=== PATIENT | female | born 1965 | race Caucasian/White ===

== ENCOUNTER 2018-05-15 11:30 | Outpatient (REF) | payer OTHER, SELFPAY ==
[2018-05-15 13:27] LABS: Anion Gap 9.7 mmol/L (3-11); BUN 19 mg/dL (7-18); CO2 23.3 mmol/L (21.0-32.0); CREATININE 0.77 mg/dL (0.55-1.02); Calcium 8.7 mg/dL (8.5-10.1); Chloride 106 mmol/L (98-107); Cholesterol 169 mg/dL (50-200); Glucose 104 mg/dL (70-100); HDL Cholesterol 57 mg/dL (40-60); LDL CHOLESTEROL 87 mg/dL (<100); Sodium 139 mmol/L (136-145); TSH (W/Ref FT4) 0.71 uIU/mL (0.358-3.74); Triglyceride 133 mg/dL (30-150)
== END 2018-05-15 11:50 ==
LOC: NCHCN 11:30
PROVIDERS: PCP Family Medicine; Visit Provider Nurse Practitioner Family
DX: Z00.00 Encounter for general adult medical examination without abnormal findings (principal); E05.90 Thyrotoxicosis, unspecified without thyrotoxic crisis or storm
CPT/HCPCS: 80048; 80061; 83721; 84443

== ENCOUNTER 2018-05-18 14:56 | Outpatient (REF) | payer OTHER, SELFPAY ==
--- NOTE | 2018-05-18 13:15 | PAPFT_PTH ---
PATIENT: JOSE J CALZADA I LOC: [facility] U#:[id number] AGE/SX: 52/F ROOM: RE05/18/[address]: Yari Henriquez : 1965 BED: DIS: 05/18/2018 SPEC #: [id number] RECD: 05/18/18 18:08 STATUS: LOIDA WATKINS #: [id number] CHANTELL: 05/18/18 13:[address]: Yari Henriquez DEPT: [facility] Cytology RECD BY: Ester Birmingham ENTERED: 05/18/18 18:09 SP TYPE: PAPFT OTHR DR: Markos Hewitt Tissues: 1 - CX/ENDOCX FOR PAP SMEARS Procedures: PAP THIN PREP/[facility] Screening HPV DNA PROBE Comments: [id number]
== END 2018-05-18 15:16 ==
LOC: NCHCN 14:56
PROVIDERS: PCP Family Medicine; Visit Provider Nurse Practitioner Family
DX: Z00.00 Encounter for general adult medical examination without abnormal findings (principal); Z12.4 Encounter for screening for malignant neoplasm of cervix; Z11.51 Encounter for screening for human papillomavirus (HPV)
CPT/HCPCS: 88142; 87624

== ENCOUNTER 2018-11-26 11:32 | Emergency (ER) | payer OTHER, SELFPAY ==
[2018-11-26 11:36] VITALS: BP 149/88; PULSE 94; RESP 16; TEMP 37; O2SAT 96
--- NOTE | 2018-11-26 11:53 | DI.RAD_ITS ---
SYMPTOMS/DIAGNOSIS: PAIN, TENDERNESS TO PALPATION, LATERAL SWELLING S/P INJURY RIGHT ANKLE: Three views. No acute fracture or dislocation is identified. There is mild soft tissue swelling bout the ankle. No radiopaque foreign bodies are seen. IMPRESSION: No acute fracture or dislocation. OS CALCIS: Two views. No acute fracture or dislocation is seen. There is a well- corticated osseous density seen at the lateral aspect of the calcaneus, likely reflecting old injury. The soft tissues are unremarkable. IMPRESSION: No acute abnormality.
--- NOTE | 2018-11-26 11:54 | ED.GENADUL_ITS ---
Discharge Plan Disposition Patient Disposition: HOME Discharge Details Chief Complaint: Orthopedic Clinical Impression: Right ankle sprain Primary Care Provider: Yari Henriquez ED Provider: Corey Ramon Home Meds and New Rx's Prescriptions: No Action ranitidine HCl [Zantac 75] 75 MG tablet 75 mg PO PRN RF: 0 ibuprofen 600 mg Tablet 600 mg PO Q6H PRNRF: 0 Discharge Instructions Instructions: Ankle Sprain (ED) Additional Instructions: Please use orthopedic boot and crutches over the next 2 weeks. Maintain toe- touch weightbearing for the next few days and then progress to weightbearing as tolerated. Please take ibuprofen over the counter. Take 600mg by mouth every 6 hours as needed for pain. Please contact your primary care physician to arrange follow-up. Return to the ER for any worsening or new concerning symptoms. Stand Alone Forms: Work Release Referrals: Yari Henriquez [Primary Care Provider] - Discharge Data Discharge Date/Time-TO BE ENTERED AT DEPARTURE: 11/26/18 15:25 Medical Decision Making 12:24 -- 53-year-old female here with injury to her right ankle 3 days ago. Concern for fracture versus sprain. Patient does have some tenderness over her calcaneus. Plan to obtain xray. Patient has clear lungs, saturating well in no respiratory distress. She does have some mild tenderness right lateral ribs. I suspect rib contusion. I offered ibuprofen and patient declined noting that she would take it when she got home. 14:24 --x-ray of the calcaneus and ankle reviewed and interpreted by me: No definitive fracture. Given severe sprain I will treat with orthoboot and crutches. Usual and customary discharge instructions were provided. HPI General Mode of arrival: ambulatory . Date/Time Provider Initiated Documentation: 11/26/18 11:45 . Limitations to Documentation: no limitations . Information obtained by: patient . HPI Narrative: 53-year-old female presents with chief complaint of right ankle pain. Patient notes she slipped and injured her right ankle 3 days ago. She is had pain and swelling of her ankle since the injury. Pain is moderate and worse with ambulation. She is able to ambulate. No associated proximal lower leg pain. No associated numbness or tingling. Patient also notes that she recently injured her right lateral ribs. A friend slid into her. Pain is mild to moderate right lateral chest. No associated shortness of breath or difficulty breathing. Related Data Home Medications Medication Instructions Recorded Confirmed ranitidine HCl [Zantac 75] 75 mg PO PRN 09/11/13 11/26/18 ibuprofen 600 mg PO Q6H PRN 11/26/18 11/26/18 Allergies Allergy/AdvReac Type Severity Reaction Status Date / Time Sulfa (Sulfonamide AdvReac Intermediate vomits Unverified 11/26/18 11:39 Antibiotics) General Stated Complaint: Orthopedic JUANA: 4 Review of Systems Cardiovascular Denies dyspnea Respiratory Denies dyspnea Musculoskeletal Reports as per HPI and Denies deformity PFSH Social History Smoking/Tobacco Use Status: Current every day Tobacco Type: cigarettes Alcohol Intake: current Alcohol Intake frequency: a few times a month Alcohol type: beer Drug use: Never Substance use type: does not use Do you feel safe at home: Yes Do you feel safe in your relationship?: Yes Exam Const General: cooperative and no acute distress Neck Neck: trachea midline and supple Chest Chest: no crepitus and tenderness (lateral ribs rt mild) Resp Auscultation: clear to auscultation bilaterally, no rales, no rhonchi and no wheezes Cardio Jugular venous pressure: no JVD Rate: regular rate and not tachycardic Rhythm: regular rhythm GI Palpation: soft, not firm, no guarding, no masses, not rigid and nontender Skin General skin exam: no rashes or lesions noted Neuro General: alert, awake, oriented x3 and tone normal Extrem General: no edema Course Vital Signs Temperature 37.0 C 11/26/18 11:36 Pulse 94 H 11/26/18 11:36 Respiratory Rate 16 11/26/18 11:36 Blood Pressure 149/88 H 11/26/18 11:36 Pulse Oximetry 96 11/26/18 11:36 Temperature 37.0 C 11/26/18 11:36 Temperature Source Temporal Artery Scan 11/26/18 11:36 Pulse 94 H 11/26/18 11:36 Respiratory Rate 16 11/26/18 11:36 Respiratory Effort Non-Labored 11/26/18 11:37 Blood Pressure 149/88 H 11/26/18 11:36 Blood Pressure Position Sitting 11/26/18 11:36 Pulse Oximetry 96 11/26/18 11:36 Oxygen Delivery Method Room Air 11/26/18 11:36 Oxygen Flow Rate 0 11/26/18 11:36 Pain Level 6 11/26/18 11:36
--- NOTE | 2018-11-26 14:29 | DI.VRAD_ITS ---
EXAM: XR Right Calcaneus EXAM DATE/TIME: 11/26/2018 11:54 AM CLINICAL HISTORY: 53 years old, female; Right; Patient HX: Heel and ankle pain S/P fall off step 2 days ago TECHNIQUE: Imaging protocol: XR of the Right calcaneus. Views: 2 or more views. COMPARISON: No relevant prior studies available. FINDINGS: Bones/joints: There is no evidence of acute fracture. There is no evidence of malalignment or dislocation.. Well-corticated ossific fragment lateral to the calcaneus may represent avulsion fracture of unknown age. Soft tissues: Normal. IMPRESSION: 1. There is no evidence of acute fracture. 2. There is no evidence of malalignment or dislocation.. Dictated and Authenticated by: Nusrat Cazares MD. Ordering:LYNN Nicole MD
--- NOTE | 2018-11-26 14:31 | DI.VRAD_ITS ---
EXAM: XR Right Ankle EXAM DATE/TIME: 11/26/2018 11:54 AM CLINICAL HISTORY: 53 years old, female; Right; Patient HX: Heel and ankle pain S/P fall off step 2 days ago TECHNIQUE: Imaging protocol: XR Right ankle. Views: 3 or more views. COMPARISON: No relevant prior studies available. FINDINGS: Bones/joints: There is no evidence of acute fracture. There is no evidence of malalignment or dislocation. Soft tissues: Mild lateral malleolar soft tissue swelling. IMPRESSION: Mild lateral malleolar soft tissue swelling. Dictated and Authenticated by: Nusrat Cazares MD. Ordering:LYNN Nicole MD
== END 2018-11-26 15:25 | disposition home or self-care (01) ==
PROVIDERS: Emergency Provider Student in an Organized Health Care Education/Training Program; PCP Nurse Practitioner Family
DX: S93.401A Sprain of unspecified ligament of right ankle, initial encounter (principal); X50.9XXA Other and unspecified overexertion or strenuous movements or postures, initial encounter; R07.81 Pleurodynia
CPT/HCPCS: 29515; 99283; 73610; 73650; E0114; L4361